=== PATIENT | female | born 1960 ===

== ENCOUNTER → 2024-06-10 | Outpatient (CLI) | payer MEDICAID ==
[~2024-06-10] VITALS: Ht 157.5 cm; Wt 90.7 kg
[~2024-06-10] MED LIST: ADENOSINE 76 MG in GIVE UN-DILUTED 0 ML IV ONE; ADENOSINE 90 MG/30 ML INJ IV ONE
== END | disposition home or self-care (01) ==
LOC: Rad HDHVI 09:14
PROVIDERS: ATTEND Internal Medicine Cardiovascular Disease
DX: I11.0 Hypertensive heart disease with heart failure (principal); I50.23 Acute on chronic systolic (congestive) heart failure; E78.00 Pure hypercholesterolemia, unspecified; I70.0 Atherosclerosis of aorta; R94.31 Abnormal electrocardiogram [ECG] [EKG]; Z82.49 Family history of ischemic heart disease and other diseases of the circulatory system
CPT/HCPCS: 78452; 93005; 96374; 96375; A9500; J0153

== ENCOUNTER → 2024-06-14 | Outpatient (CLI) | payer MEDICAID | END | disposition home or self-care (01) | LOC: Rad HDHVI 08:44 | PROVIDERS: ATTEND Internal Medicine Cardiovascular Disease | DX: I11.0 Hypertensive heart disease with heart failure (principal); I50.23 Acute on chronic systolic (congestive) heart failure | CPT/HCPCS: 93306 ==